=== PATIENT | male | born 1995 | race Caucasian/White ===

== ENCOUNTER 2020-03-24 21:59 | Emergency (ER) | payer BC ==
[~2020-03-24] VITALS: Ht 188 cm; Wt 143.8 kg
--- NOTE | 2020-03-24 22:43 | PHYS DOC ---
Past History Past Medical History: UTI General Adult HPI: HPI: " It hurting to pass my urine.. it looks like I got blood in it.. I have had this happen before".." It was a urinary tract infection".. Patient is a 24 year old male who presents with above hx and complaints of dysuria the last couple days. Patient has had unprotected sex. No history of previous immunosuppression. No history of travel. No history of STDs. No his tory of 70 ill contacts. Patient has not follow-up primary care. Patient has only one current sexual partner. Review of Systems: Review of Systems: Constitutional: Denies fever or chills Eyes: Denies change in visual acuity HENT: Denies nasal congestion or sore throat Respiratory: Denies cough or shortness of breath Cardiovascular: Denies chest pain or edema GI: Denies abdominal pain, nausea, vomiting, bloody stools or diarrhea : Complains of dysuria Musculoskeletal: Denies back pain or joint pain Integument: Denies rash Neurologic: Denies headache, focal weakness or sensory changes Endocrine: Denies polyuria or polydipsia Lymphatic: Denies swollen glands Psychiatric: Denies depression or anxiety Family History: Family History: Noncontributory to presentation Current Medications: Current Meds: See nursing for home meds Allergies: Allergies: No known drug allergies Physical Exam: PE: Constitutional: Moderate acute distress, non-toxic appearance. [] HENT: Normocephalic, atraumatic, bilateral external ears normal, oropharynx moist, no oral exudates, nose normal. [] Eyes: PERRLA, EOMI, conjunctiva normal, no discharge. [] Neck: Normal range of motion, no tenderness, supple, no stridor. [] Cardiovascular:Heart rate regular rhythm, no murmur [] Lungs & Thorax: Bilateral breath sounds equal apex auscultation [] Abdomen: Bowel sounds normal, soft, no tenderness, no masses, no pulsatile masses. Circumcised male. Mild penile discharge. Testicles nontender. No flank tenderness Skin: Warm, dry, no erythema, no rash. [] Back: No tenderness, no CVA tenderness. [] Extremities: No tenderness, no cyanosis, no clubbing, ROM intact, no edema. [] Neurologic: Alert and oriented X 3, normal motor function, normal sensory function, no focal deficits noted. [] Psychologic: Affect anxious judgement normal, mood normal. [] EKG: EKG: [] Radiology/Procedures: Radiology/Procedures: [] Heart Score: Risk Factors: Risk Factors: DM, Current or recent (<one month) smoker, HTN, HLP, family history of CAD, obesity. Risk Scores: Score 0 - 3: 2.5% MACE over next 6 weeks - Discharge Home Score 4 - 6: 20.3% MACE over next 6 weeks - Admit for Clinical Observation Score 7 - 10: 72.7% MACE over next 6 weeks - Early Invasive Strategies Course & Med Decision Making: Course & Med Decision Making Pertinent Labs and Imaging studies reviewed. (See chart for details) Patient has safe sex. Patient to inform partner possible STD. Patient to push fluids and vitamin C drinks. Patient take doxycycline 100 mg twice daily. Patient follow-up culture. Prior to discharge patient received 2 g of Flagyl. 1 g IM of Rocephin and 1 g of Zithromax. Must follow-up primary care. Return if any concerns. Impression: 1. UTI 2. Urethritis [] Dragon Disclaimer: Dragon Disclaimer: This electronic medical record was generated, in whole or in part, using a voice recognition dictation system. Departure Departure: Referrals: PCP,NANCY (PCP) Scripts Doxycycline Hyclate (DOXYCYCLINE HYCLATE) 100 Mg Capsule 100 MG PO BID for UTI for 14 Days, #28 CAP Prov: DYLON VILLAFANA MD 03/25/20 Tj Disclaimer This chart was dictated in whole or in part using Voice Recognition software in a busy, high-work load, and often noisy Emergency Department environment. It may contain unintended and wholly unrecognized errors or omissions. DYLON VILLAFANA MD Mar 24, 2020 22:43
[2020-03-24] MEDS ORDERED: ONDANSETRON ODT 4 MG TAB.RAPDIS PO ONE (23:00)
[2020-03-24 23:02] VITALS: BP 183/94
[2020-03-24 23:53] LABS: CLARITY,URINE CLOUDY; COLOR,URINE BROWN
[2020-03-24 23:54] LABS: BACTERIA,URINE FEW /HPF (0-FEW); RBC,URINE >40 /HPF (0-2); SQUAMOUS EPITHELIAL CELL,UR OCC /LPF; WBC,URINE >40 /HPF (0-4)
[2020-03-25] MEDS ORDERED: ONDANSETRON ODT 4 MG TAB.RAPDIS PO ONE (00:30)
[2020-03-25] MEDS ORDERED: AZITHROMYCIN 250 MG TABLET. PO ONE (00:30)
[2020-03-25] MEDS ORDERED: DOXY100C2 PO (00:30)
[2020-03-25] MEDS ORDERED: metroNIDAZOLE 500 MG TABLET PO ONE (00:30)
[2020-03-25] MEDS ORDERED: cefTRIAXone IM 1 GM VIAL IM ONE (00:30)
[2020-03-25] MEDS ORDERED: KETOROLAC 60 MG/2 ML VIAL. IM ONE (00:45)
== END 2020-03-25 01:13 | disposition home or self-care (01) ==
LOC: ER 21:59
DX: N39.0 Urinary tract infection, site not specified (principal); R30.0 Dysuria
CPT/HCPCS: 81001; 87086; 87491; 87591; 96372; 99284; J0696; J1885; Q0162; 36415; 87077; 87186

== ENCOUNTER 2020-12-19 18:40 | Emergency (ER) | payer BC ==
[~2020-12-19] VITALS: Ht 188 cm; Wt 145.5 kg
[~2020-12-19 18:40] MED LIST: DOXY100C3 PO
--- NOTE | 2020-12-19 19:51 | PHYS DOC ---
Past History Past Medical History: UTI Additional Past Medical Histor: REFLUX, HNPP Past Surgical History: No Surgical History Alcohol Use: None General Adult EDM: Chief Complaint: BLOOD IN URINE HPI: HPI: Patient is a 25-year-old male who presents to the ER for hematuria, dysuria, urinary frequency/urgency, and feeling that he is not completely emptying his bladder since Saturday. Patient reports he has a history of UTIs with his last 1 in March. He denies a history of kidney stones. He denies vomiting, fevers, diarrhea, abdominal pain. Review of Systems: Review of Systems: 14 body systems of the review of systems have been reviewed. See HPI for pertinent positive and negative responses, otherwise all other systems are negative, nonpertinent or noncontributory Allergies: Allergies: Allergies Coded Allergies Type Severity Reaction Last Updated Verified No Known Drug Allergies 03/24/20 No Physical Exam: PE: Constitutional: Well developed, well nourished, no acute distress, non-toxic appearance. [] HENT: Normocephalic, atraumatic, bilateral external ears normal, oropharynx moist, no oral exudates, nose normal. [] Eyes: PERRL, EOMI, conjunctiva normal, no discharge. [] Neck: Normal range of motion, no stridor Cardiovascular:Heart rate regular rhythm, no murmur [] Lungs & Thorax: Bilateral breath sounds clear to auscultation [] Abdomen: Bowel sounds normal, soft, no tenderness, obese, no masses, no pulsatile masses. [] Skin: Warm, dry, no erythema, no rash. [] Back: No tenderness, no CVA tenderness. [] Extremities: No tenderness, no cyanosis, no clubbing, ROM intact, no edema. [] Neurologic: Alert and oriented X 3, normal motor function, normal sensory function, no focal deficits noted. [] Psychologic: Affect normal, judgement normal, mood normal. [] Current Patient Data: Labs: Laboratory Tests Test 12/19/20 19:21 Urine Collection Type Unknown Urine Color Red Urine Clarity Cloudy Urine pH 6.5 Urine Specific [place] 1.020 Urine Protein 100 mg/dl Urine Glucose (UA) Neg mg/dL Urine Ketones (Stick) Neg mg/dL Urine Blood Large Urine Nitrite Pos Urine Bilirubin Neg Urine Urobilinogen Dipstick 1.0 mg/dL Urine Leukocyte Esterase Small Urine RBC 11-20 /HPF Urine WBC 1-4 /HPF Urine Squamous Epithelial Cells None /LPF Urine Bacteria Few /HPF Vital Signs: Vital Signs Date Time Temp Pulse Resp B/P (MAP) Pulse Ox O2 Delivery O2 Flow Rate FiO2 12/19/20 19:20 99.4 79 18 151/87 (108) 98 Room Air EKG: EKG: [] Radiology/Procedures: Radiology/Procedures: [] Heart Score: C/O Chest Pain: N/A Risk Factors: Risk Factors: DM, Current or recent (<one month) smoker, HTN, HLP, family history of CAD, obesity. Risk Scores: Score 0 - 3: 2.5% MACE over next 6 weeks - Discharge Home Score 4 - 6: 20.3% MACE over next 6 weeks - Admit for Clinical Observation Score 7 - 10: 72.7% MACE over next 6 weeks - Early Invasive Strategies Course & Med Decision Making: Course & Med Decision Making Pertinent Labs and Imaging studies reviewed. (See chart for details) [Patient is a 25-year-old male who presents to the ER for dysuria, hematuria and urinary frequency. A urinalysis was performed that showed a urinary tract infection. Patient will be discharged home with an antibiotic. Patient given first dose in the ER. Patient advised to increase fluids and avoid bladder irritants. Patient educated that if he continues to have urinary tract infections he may need to follow-up with a urologist. Patient has a history of UTIs and last had treatment in March. I discussed with patient all findings and diagnostic testing as well as the need to follow-up with PCP for further evaluation and treatment or return to the ER if any new or worsening symptoms. Strict return precautions were also discussed at length. Patient voiced understanding and agreement with the plan. Patient is hemodynamically stable at the time of disposition. Dragon Disclaimer: Datapipe Disclaimer: This electronic medical record was generated, in whole or in part, using a voice recognition dictation system. Departure Departure: Impression: Primary Impression: Urinary tract infection Qualified Codes: N30.01 - Acute cystitis with hematuria Disposition: HOME / SELF CARE / HOMELESS Condition: GOOD Referrals: PCP,NO (PCP) Patient Instructions: Urinary Tract Infection Additional Instructions: You were seen in the ER today for a urinary tract infection. This will be treated with an antibiotic. You were given your first dose in the ER. Continue your antibiotic at home make sure you finish it completely. Increase your fluids at home. You can take Tylenol or ibuprofen at home. Avoid bladder irritants like caffeine, alcohol or sugary beverages. As we discussed, culture of your urine will be sent out and if we need to change her antibiotic we will call you. If you continue to have urinary tract infections you may need to follow-up with a urologist. You can call urology if you continue to have symptoms. Please follow-up with your primary care provider within the week regarding your ER visit. Return to the ER if you develop severe abdominal pain, intractable nausea or vomiting, high fevers refractory to treatment, increased blood in your urine. Scripts Cephalexin (CEPHALEXIN) 500 Mg Tablet 1 TAB PO QID for uti for 10 Days, #40 TAB 0 Refills Prov: MEE ZHANG APRN 12/19/20 MEE ZHANG APRN Dec 19, 2020 19:51
[2020-12-19 20:01] LABS: BILIRUBIN,URINE NEG (NEG); CLARITY,URINE CLOUDY; COLOR,URINE RED; GLUCOSE,URINE NEG (NEG); NITRITE,URINE POS (NEG)
[2020-12-19 20:02] LABS: BACTERIA,URINE FEW /HPF (0-FEW)
[2020-12-19] MEDS ORDERED: CEPH500T PO (20:14)
[2020-12-19] MEDS ORDERED: CEPHALEXIN 250 MG CAPSULE PO ONE (20:15)
[2020-12-19 21:07] VITALS: BP 112/67
== END 2020-12-19 21:14 | disposition home or self-care (01) ==
LOC: ER 18:40
DX: N30.01 Acute cystitis with hematuria (principal); Z87.440 Personal history of urinary (tract) infections
CPT/HCPCS: 81001; 87086; 99283